=== PATIENT | female | born 1965 | race Caucasian/White ===

== ENCOUNTER 2018-05-01 06:01 | Emergency (ER) | payer OTHER ==
[~2018-05-01] VITALS: Ht 170.2 cm; Wt 90.7 kg
[~2018-05-01 06:01] MED LIST: NOHOMEMEDICATIONS; PEPCID20 MG PO; TYLENOL325 MG PO
[2018-05-01 06:20] LABS: BASOPHILS 0.8 % (0.0-2.0); EOSINOPHILS 0.8 % (0.0-3.0); HEMATOCRIT 37.9 % (37.0-47.0); HEMOGLOBIN 13.4 gm/dL (12.0-15.0); LYMPHOCYTES 21.5 % (24.0-44.0); MCH 32.9 pg (26.0-34.0); MCHC 35.4 g/dL (28.0-37.0); MONOCYTES 6.8 % (1.0-8.0); PLATELET COUNT 188 thou/uL (150-400); POLYS 70.1 % (36.0-66.0); RBC 4.08 mil/uL (4.20-5.00); RDW 12.7 % (10.5-14.5); WBC 7.1 thou/uL (4.0-11.0)
[2018-05-01 06:29] LABS: CREATININE 1.1 mg/dL (0.6-1.0)
[2018-05-01 06:35] LABS: ALBUMIN 3.7 g/dL (3.4-5.0); TOTAL BILIRUBIN 0.3 mg/dL (<0.1-1.0)
[2018-05-01 07:23] LABS: URINE BILIRUBIN NEGATIVE (Negative); URINE BLOOD TRACE (Negative); URINE GLUCOSE-RANDOM* NEGATIVE (Negative); URINE KETONES NEGATIVE (Negative); URINE PROTEIN (DIPSTICK) NEGATIVE (Negative); URINE UROBILINOGEN 0.2 E.U./dl (0.2-1.0)
[2018-05-01 07:24] LABS: URINE CLARITY CLEAR; URINE COLOR YELLOW; URINE LEUKOCYTES-REFLEX NEGATIVE (Negative); URINE NITRITE-REFLEX NEGATIVE (Negative)
[2018-05-01] MEDS ORDERED: IBUPROFEN 600600 M1 PO (09:17)
[2018-05-01] MEDS ORDERED: NORCO 5-325 TA1 EACH PO (09:17)
[2018-05-01] MEDS ORDERED: ZOFRAN ODT4 MG PO (09:17)
[2018-05-01 09:29] VITALS: BP 119/76
== END 2018-05-01 09:30 | disposition home or self-care (01) ==
LOC: ER 06:01
PROVIDERS: Emergency Medicine
DX: K80.50 Calculus of bile duct without cholangitis or cholecystitis without obstruction (principal); R19.7 Diarrhea, unspecified; Z88.5 Allergy status to narcotic agent